=== PATIENT | female | born 1975 | race Two or more races ===

== ENCOUNTER 2022-08-02 00:43 | Emergency (ER) | payer MEDICAID ==
[~2022-08-02] VITALS: Ht 165.1 cm; Wt 90.0 kg
[2022-08-02 01:21] LABS: Basophils # (auto) 0.1 10 ^3/uL (0-0.2); Basophils % (auto) 0.6 % (0.0-2.0); Eosinophils # (auto) 0.1 10 ^3/uL (0-0.8); Eosinophils % (auto) 0.4 % (0.0-7.0); Hematocrit 40.8 % (36.0-46.0); Hemoglobin 13.7 g/dL (12.2-16.2); Lymphocytes # (auto) 4.1 10 ^3/uL (0.4-5.4); Lymphocytes % (auto) 31.7 % (10.0-50.0); Mean Corpuscular Hemoglobin 30.7 pg (28.0-32.0); Mean Corpuscular Hgb Conc. 33.6 g/dL (32.0-36.0); Mean Corpuscular Volume 91.3 fL (80.0-100.0); Monocytes # (auto) 0.5 10 ^3/uL (0-1.3); Monocytes % (auto) 3.5 % (0.0-12.0); Neutrophils # (auto) 8.2 10 ^3/uL (1.6-8.6); Neutrophils % (auto) 63.8 % (37.0-80.0); Red Blood Cells 4.47 10^6/uL (4.0-5.20); Red Cell Distribution Width 13.9 % (11.8-14.3); White Blood Cell 12.8 10^3/uL (4.4-10.8)
[2022-08-02 01:37] LABS: Salicylate 4.3 mg/dL (2.8-20.0)
[2022-08-02 01:38] LABS: Albumin 3.9 g/dL (3.4-5.0); BUN/Creatinine Ratio 8.9; Calcium 8.9 mg/dL (8.5-10.1); Potassium 4.1 mmol/L (3.5-5.1)
[2022-08-02 01:41] LABS: Bilirubin, Total 0.3 mg/dL (0.2-1.0); Total Protein 7.5 g/dL (6.4-8.2)
[2022-08-02 01:56] LABS: Acetaminophen < 2.0 ug/mL (10-30)
[2022-08-02 02:02] LABS: Urine Bacteria NONE SEEN /hpf (None Seen); Urine Blood Negative /uL (Negative); Urine Specific Gravity 1.004 (1.001-1.035); Urine WBC 2 /hpf (0 - 5)
[2022-08-02 02:48] LABS: Alcohol, Urine < 3.0 mg/dL (0-10); Amphetamine Screen, Urine NEGATIVE (NEGATIVE); Barbiturate Scree,Urine NEGATIVE (NEGATIVE); Benzodiazephine Screen, Urine NEGATIVE (NEGATIVE); Cannabinoid Screen, Urine NEGATIVE (NEGATIVE); Cocaine Screen, Urine NEGATIVE (NEGATIVE); Opiate Scree,Urine NEGATIVE (NEGATIVE); Phencyclidine Screen, Urine NEGATIVE (NEGATIVE)
[2022-08-02] MEDS ORDERED: SENNA 8.6 MG TAB PO ONE (06:45)
[2022-08-02] MEDS: OLANZapine 5 MG TAB PO SCH (23:21)
[2022-08-03] MEDS: OLANZapine 5 MG TAB PO SCH ×2 (10:51→22:48)
[2022-08-04] MEDS ORDERED: NICOTINE 7MG/24HR TOPICAL PATCH TD ONE (06:30)
[2022-08-04] MEDS: OLANZapine 5 MG TAB PO SCH (09:40)
[2022-08-04] MEDS ORDERED: DOCUSATE SOD 100 MG CAP PO ONE (10:00)
[2022-08-04 14:44] VITALS: BP 144/80
== END 2022-08-04 14:16 | disposition short-term general hospital (02) ==
LOC: ER 00:43 → EDBD 00:43 → ER 08-04 14:16
DX: F20.9 Schizophrenia, unspecified (principal); R45.851 Suicidal ideations; Z20.822 Contact with and (suspected) exposure to COVID-19
CPT/HCPCS: 36415; 70450; 71045; 80053; 80307; 80320; 80329; 81001; 84702; 85025; 87426

== ENCOUNTER 2023-02-03 09:09 | Emergency (ER) | payer MEDICAID ==
[~2023-02-03] VITALS: Ht 157.5 cm; Wt 87.0 kg
[2023-02-03 09:28] LABS: Urine WBC None Seen /hpf (0 - 5)
[2023-02-03 09:29] LABS: Basophils # (auto) 0.1 10 ^3/uL (0-0.2); Basophils % (auto) 0.7 % (0.0-2.0); Eosinophils # (auto) 0 10 ^3/uL (0-0.8); Eosinophils % (auto) 0.3 % (0.0-7.0); Hematocrit 40.1 % (36.0-46.0); Hemoglobin 13.5 g/dL (12.2-16.2); Lymphocytes # (auto) 2.9 10 ^3/uL (0.4-5.4); Lymphocytes % (auto) 31.7 % (10.0-50.0); Mean Corpuscular Hemoglobin 30.5 pg (28.0-32.0); Mean Corpuscular Hgb Conc. 33.7 g/dL (32.0-36.0); Mean Corpuscular Volume 90.6 fL (80.0-100.0); Monocytes # (auto) 0.4 10 ^3/uL (0-1.3); Monocytes % (auto) 4.4 % (0.0-12.0); Neutrophils # (auto) 5.8 10 ^3/uL (1.6-8.6); Neutrophils % (auto) 62.9 % (37.0-80.0); Red Blood Cells 4.42 10^6/uL (4.0-5.20); Red Cell Distribution Width 13.9 % (11.8-14.3); White Blood Cell 9.2 10^3/uL (4.4-10.8)
[2023-02-03 09:36] LABS: Urine Bacteria NONE SEEN /hpf (None Seen); Urine Blood Negative /uL (Negative); Urine Clarity Clear (Clear); Urine Protein, UAD Negative (Negative); Urine Specific Gravity 1.006 (1.001-1.035); Urine Urobilinogen Normal (Negative); Urine pH 7.5 (5.0-8.0)
[2023-02-03 09:44] LABS: Urine Color Straw (Yellow)
[2023-02-03 10:24] LABS: Potassium 4.2 mmol/L (3.5-5.1)
[2023-02-03] MEDS ORDERED: DOCU-94 PO (10:27)
[2023-02-03] MEDS ORDERED: DOCUSATE SOD 100 MG CAP PO ONE (10:30)
[2023-02-03 10:32] VITALS: BP 127/63; PULSE 90; RESP 18; TEMP 98.1; O2SAT 96
[2023-02-03 10:33] LABS: Albumin 3.5 g/dL (3.4-5.0); Bilirubin, Total 0.2 mg/dL (0.2-1.0); Calcium 8.8 mg/dL (8.5-10.1); Total Protein 6.9 g/dL (6.4-8.2)
== END 2023-02-03 10:42 | disposition home or self-care (01) ==
LOC: ER 09:09
DX: K59.00 Constipation, unspecified (principal); E78.5 Hyperlipidemia, unspecified; I10 Essential (primary) hypertension
CPT/HCPCS: 36415; 74176; 80053; 81001; 85025

== ENCOUNTER 2023-02-15 18:23 | Emergency (ER) | payer MEDICAID ==
[~2023-02-15] VITALS: Ht 160 cm; Wt 81.8 kg
[~2023-02-15 18:23] MED LIST: DOCU-94 PO
[2023-02-15] MEDS ORDERED: KETOROLAC TROMETH 60MG/2ML VIAL IM ONE (19:30)
[2023-02-15 19:40] VITALS: BP 129/76; TEMP 98.3
[2023-02-15 19:45] VITALS: PULSE 87; RESP 18; O2SAT 97
[2023-02-15] MEDS ORDERED: IBUP1TAB5 PO (22:10)
[2023-02-15] MEDS ORDERED: ACET500T58 PO (22:10)
[2023-02-15] MEDS ORDERED: ZOFR4T PO (22:10)
== END 2023-02-15 22:36 | disposition home or self-care (01) ==
LOC: EDBD 18:23 → ER 18:23
DX: S09.90XA Unspecified injury of head, initial encounter (principal); R51.9 Headache, unspecified; F32.9 Major depressive disorder, single episode, unspecified; E11.9 Type 2 diabetes mellitus without complications; E78.5 Hyperlipidemia, unspecified; I10 Essential (primary) hypertension; F20.9 Schizophrenia, unspecified; X58.XXXA Exposure to other specified factors, initial encounter; Y93.89 Activity, other specified; Y92.89 Other specified places as the place of occurrence of the external cause; Y99.8 Other external cause status
CPT/HCPCS: 70450; 96372; 99285; J1885